=== PATIENT | male | born 1995 | race Caucasian/White ===

== ENCOUNTER → 2017-06-20 | Outpatient (REF) | payer BC ==
[2017-06-20 20:47] LABS: BASO % 0.8 % (0.0-1.0); EOS # 0.1 10^3/uL (0.0-0.50); EOS % 2.7 % (0.0-3.0); IMMATURE GRANULOCYTE % 0.2 % (0-0); LYMPH # 1.8 10^3/uL (1.5-6.5); LYMPH % 37.5 % (24.0-44.0); MEAN CORPUSCULAR HGB CONC 33.7 g/dl (32.0-36.5); MONO # 0.6 10^3/uL (0.0-0.8); MONO % 11.5 % (0.0-5.0); NEUTROPHILS # 2.3 10^3/uL (1.8-7.7); NEUTROPHILS % 47.3 % (36.0-66.0); PLATELET COUNT, AUTOMATED 303 10^3/uL (150-450); RED CELL DISTRIBUTION WIDTH 12.5 % (11.5-14.5); WHITE BLOOD COUNT 4.9 10^3/uL (4.0-10.0)
[2017-06-20 21:04] LABS: ALBUMIN 4.2 GM/DL (3.2-5.2); ALBUMIN/GLOBULIN RATIO 1.45 (1.00-1.93); ALKALINE PHOSPHATASE 87 U/L (45-117); ALT/SGPT 37 U/L (12-78); ANION GAP 7 MEQ/L (8-16); AST/SGOT 20 U/L (15-37); BILIRUBIN,TOTAL 0.3 MG/DL (0.2-1.0); BLOOD UREA NITROGEN 15 MG/DL (7-18); CALCIUM LEVEL 9.6 MG/DL (8.5-10.1); CARBON DIOXIDE LEVEL 31 MEQ/L (21-32); CHLORIDE LEVEL 102 MEQ/L (98-107); CHOLESTEROL LEVEL 216 MG/DL (<200); CREATININE FOR GFR 1.07 MG/DL (0.70-1.30); GLOMERULAR FILTRATION RATE > 60.0 (>60); GLUCOSE, FASTING 79 MG/DL (70-105); POTASSIUM SERUM 4.3 MEQ/L (3.5-5.1); SODIUM LEVEL 140 MEQ/L (136-145); TOTAL PROTEIN 7.1 GM/DL (6.4-8.2); TRIGLYCERIDES LEVEL 163 MG/DL (<150)
== END ==
LOC: M SFHCADAM 11:52
PROVIDERS: ATTEND Physician Assistant Medical
DX: R03.0 Elevated blood-pressure reading, without diagnosis of hypertension (principal)

== ENCOUNTER → 2017-06-22 | Outpatient (CLI) | payer BC ==
--- NOTE | 2017-06-22 09:27 | REP ---
URINARY TRACT SONOGRAPHY WITH RENAL ARTERY DOPPLER FLOW ASSESSMENT: HISTORY: Hypertension. MORPHOLOGIC FINDINGS: Scanning at the level of the urinary bladder shows no abnormality. Renal cortical echogenicity pattern is normal and renal contours are smooth on both sides. The right kidney measures 11.4 x 5.9 x 5.0 cm. Left kidney measures 11.7 x 6.3 x 5.0 cm. No hydronephrosis is seen. No cyst or mass is observed. There is a 2.6 cm splenule noted incidentally in the left upper quadrant. RENAL ARTERY DOPPLER FLOW ASSESSMENT: Peak systolic flow velocity in the abdominal aorta at the level of the main renal arteries is normal at 100 cm/s. Peak systolic flow velocity in the left main renal artery is 134 cm/s and flow in the right main renal artery is recorded at 135 cm/s. Renal to aortic flow velocity ratios are therefore normal 1.4 and 1.3 on the right and left respectively. Resistive indices and acceleration times are measured in the intralobar arteries of the upper, mid and lower pole of each kidney and these values are normal bilaterally. IMPRESSION: No significant morphologic abnormality. No renal artery Doppler evidence of renal artery stenosis. Signed by Jesus Pearce MD 06/22/2017 01:17 P
== END ==
LOC: M RAD 07:03
PROVIDERS: ATTEND Physician Assistant Medical
DX: I10 Essential (primary) hypertension (principal); R03.0 Elevated blood-pressure reading, without diagnosis of hypertension

== ENCOUNTER → 2019-02-19 | Outpatient (CLI) | payer BC ==
[2019-02-20 08:19] LABS: MUMPS VIRUS IgG ANTIBODY 78.2 AU/mL (Immune >10.9); RUBEOLA IgG ANTIBODY >300.0 AU/mL (Immune >29.9)
[2019-02-20 10:50] LABS: RUBELLA IgG QUALITATIVE IMMUNE (IMMUNE)
== END ==
LOC: M LAB 13:50
PROVIDERS: ATTEND Physician Assistant Medical
DX: Z01.84 Encounter for antibody response examination (principal)

== ENCOUNTER → 2025-04-07 | Outpatient (REF) | payer OTHER ==
[2025-04-07 19:06] LABS: BASO # 0.0 10^3/uL (0.0-0.2); BASO % 1.1 % (0.0-1.0); EOS # 0.3 10^3/uL (0.0-0.5); EOS % 7.0 % (0.0-3.0); LYMPH # 1.6 10^3/uL (1.5-5.0); LYMPH % 42.7 % (24.0-44.0); MONO # 0.4 10^3/uL (0.0-0.8); MONO % 11.3 % (2.0-8.0); NEUTROPHILS # 1.4 10^3/uL (1.5-8.5); NEUTROPHILS % 37.6 % (36.0-66.0); PLATELET COUNT, AUTOMATED 270 10^3/uL (150-450)
[2025-04-07 19:25] LABS: ESTIMATED AVERAGE GLUCOSE 100.0 MG/DL (60-110)
[2025-04-07 19:41] LABS: ALT/SGPT 24.0 U/L (7.0-40); AST/SGOT 29.0 U/L (<34); CALCIUM LEVEL 9.6 MG/DL (8.5-10.1); CARBON DIOXIDE LEVEL 30.0 MMOL/L (20-31); CHLORIDE LEVEL 103.0 MMOL/L (98-107); CHOLESTEROL LEVEL 185.0 MG/DL (<200); CHOLESTEROL RISK RATIO 3.26 (<5); CREATININE FOR GFR 1.25 MG/DL (0.70-1.30); GLOMERULAR FILTRATION RATE 78.5 (>60); LDL CHOLESTEROL 118.0 MG/DL (<100); NON-HDL-C 128.4 MG/DL; POTASSIUM SERUM 4.5 MMOL/L (3.5-5.1); SODIUM LEVEL 141.0 MMOL/L (136-145); TRIGLYCERIDES LEVEL 52.0 MG/DL (<150)
[2025-04-07 19:42] LABS: TOTAL 25(OH) VITAMIN D 65.4 NG/ML (20.0-100.0); VITAMIN B12 LEVEL 589.0 PG/ML (211-911)
[2025-04-07 19:43] LABS: FREE T4 1.26 NG/DL (0.89-1.76)
== END ==
LOC: M LAB REF 17:57
PROVIDERS: ATTEND Physician Assistant
DX: Z00.00 Encounter for general adult medical examination without abnormal findings (principal)

== ENCOUNTER → 2025-06-12 | Outpatient (REF) | payer OTHER ==
[2025-06-12 20:02] LABS: BASO # 0.0 10^3/uL (0.0-0.2); BASO % 0.8 % (0.0-1.0); EOS # 0.2 10^3/uL (0.0-0.5); EOS % 4.1 % (0.0-3.0); LYMPH # 1.8 10^3/uL (1.5-5.0); LYMPH % 34.7 % (24.0-44.0); MONO # 0.5 10^3/uL (0.0-0.8); MONO % 9.2 % (2.0-8.0); NEUTROPHILS # 2.6 10^3/uL (1.5-8.5); NEUTROPHILS % 51.0 % (36.0-66.0); PLATELET COUNT, AUTOMATED 272 10^3/uL (150-450)
[2025-06-12 20:09] LABS: THYROXINE (T4) 7.4 UG/DL (4.5-10.9); TOTAL T3 91.8 NG/DL (60.0-181.0)
[2025-06-12 20:10] LABS: THYROID PEROXIDASE ANTIBODY 30.0 U/ML (<60.0)
[2025-06-15 16:46] LABS: THYROGLOBULIN ANTIBODY 18.0 U/ML (<60.0)
== END ==
LOC: M LAB REF 17:04
PROVIDERS: ATTEND Physician Assistant
DX: R79.89 Other specified abnormal findings of blood chemistry (principal); D72.819 Decreased white blood cell count, unspecified